=== PATIENT | male | born 1975 | race Caucasian/White ===

== ENCOUNTER 2018-01-27 09:05 | Emergency (ER) | payer OTHER ==
[2018-01-27] MEDS: CLINDAMYCIN 600 MG/D5W (PMX) 50 ML IVPB (10:01)
== END 2018-01-27 11:30 | disposition home or self-care (01) ==
LOC: FTE 09:05
DX: M71.161 Other infective bursitis, right knee (principal)
CPT/HCPCS: 73562; 96365; 99284-25